=== PATIENT | male | born 1970 | race Hispanic/Latino ===

== ENCOUNTER 2020-02-24 17:43 | Inpatient (IN) | payer OTHER ==
[2020-02-24 18:24] LABS: BASOPHILS % (AUTO) 0.4 % (0.0-5.0); EOSINOPHILS % (AUTO) 0.3 % (0.0-8.0); HEMATOCRIT 37.8 % (42-54); LYMPHOCYTES % (AUTO) 10.4 % (21.0-51.0); MEAN CORPUSCULAR HEMOGLOBIN 27.7 pg (27.0-33.0); MEAN CORPUSCULAR HGB CONC 33.6 g/dL (32.0-36.0); MEAN CORPUSCULAR VOLUME 82.4 fL (79-99); MONOCYTES % (AUTO) 5.7 % (3.0-13.0); NEUTROPHILS % (AUTO) 82.5 % (40.0-77.0); PLATELET COUNT (AUTO) 225 K/uL (130-400); RED BLOOD CELL COUNT(AUTO) 4.59 MIL/uL (4.50-6.20); RED CELL DISTRIBUTION WIDTH 13.3 % (11.0-15.5); WHITE BLOOD COUNT (AUTO) 10.5 K/uL (4.8-10.8)
[2020-02-24 18:25] LABS: APPEARANCE,URINE Clear (CLEAR); BILIRUBIN,URINE Negative (NEGATIVE); COLOR,URINE Yellow (YELLOW); GLUCOSE, URINE (UA) TRACE mg/dL (NEGATIVE); KETONES,URINE 15 mg/dL (NEGATIVE); LEUKOCYTE ESTERASE ,URINE Negative (NEGATIVE); NITRATE,URINE Negative (NEGATIVE); OCCULT BLOOD,URINE Negative (NEGATIVE); PROTEIN,URINE Negative (NEGATIVE)
[2020-02-24 18:36] LABS: PARTIAL THROMBOPLASTIN TIME 23.1 SEC (26.3-35.5); PROTHROMBIN TIME 10.8 SEC (9.6-11.6)
[2020-02-24 18:48] LABS: ALBUMIN 3.8 g/dL (3.5-5.0); BILIRUBIN,TOTAL 0.5 mg/dL (0.2-1.0); CREATININE 1.1 mg/dL (0.5-1.5); TOTAL PROTEIN, SERUM 7.7 g/dL (6.0-8.3)
[2020-02-24 18:51] LABS: POTASSIUM 2.8 mmol/L (3.5-5.1)
[2020-02-24 18:58] LABS: BACTERIA,URINE Rare /HPF (None Seen); RBC,URINE 0-1 /HPF (0-1); SQUAMOUS EPITHELIAL CELL,UR Rare /HPF (0-2); WBC,URINE 0-1 /HPF (0-1)
[2020-02-24] MEDS ORDERED: POTASSIUM BICARB/CIT AC 25 MEQ TABLET.EFF ONE (19:06)
[2020-02-24] MEDS: FAMOTIDINE/PF 20 MG/2 ML VIAL IV SCH (21:00)
[2020-02-24] MEDS ORDERED: ONDANSETRON HCL 4 MG/2 ML VIAL IV PRN (21:00)
[2020-02-24] MEDS ORDERED: MORPHINE SULFATE 2 MG/ML 1ML SYG IV PRN (21:00)
[2020-02-24] MEDS ORDERED: SODIUM CHLORIDE 0.9% 1000ML 1,000 ML IV SCH (21:00)
[2020-02-24] MEDS ORDERED: ACETAMINOPHEN 325 MG TAB PO PRN (21:00)
[2020-02-24] MEDS ORDERED: FAMOTIDINE/PF 20 MG/2 ML VIAL IV ONE (21:49)
[2020-02-24] MEDS ORDERED: ACETAMINOPHEN 325 MG TAB ONE (22:07)
[2020-02-24] MEDS: LACTATED RINGERS 1000ML 1,000 ML IV SCH (23:00)
[2020-02-24 23:10] VITALS: BP 128/80
[2020-02-25 04:17] VITALS: BP 122/71
[2020-02-25 05:04] LABS: BASOPHILS % (AUTO) 0.5 % (0.0-5.0); EOSINOPHILS % (AUTO) 1.5 % (0.0-8.0); HEMATOCRIT 38.9 % (42-54); MEAN CORPUSCULAR HEMOGLOBIN 27.7 pg (27.0-33.0); MEAN CORPUSCULAR HGB CONC 33.4 g/dL (32.0-36.0); MEAN CORPUSCULAR VOLUME 82.8 fL (79-99); MONOCYTES % (AUTO) 8.7 % (3.0-13.0); PLATELET COUNT (AUTO) 221 K/uL (130-400); RED CELL DISTRIBUTION WIDTH 13.6 % (11.0-15.5); WHITE BLOOD COUNT (AUTO) 7.3 K/uL (4.8-10.8)
[2020-02-25 05:45] LABS: ALBUMIN 3.3 g/dL (3.5-5.0); BILIRUBIN,TOTAL 0.6 mg/dL (0.2-1.0); CREATININE 0.8 mg/dL (0.5-1.5); POTASSIUM 3.7 mmol/L (3.5-5.1); THYROID STIMULATING HORMONE 2.41 uIU/mL (0.36-3.74); TOTAL PROTEIN, SERUM 6.9 g/dL (6.0-8.3)
[2020-02-25] MEDS ORDERED: POTASSIUM CHLORIDE 10MEQ/100ML 100 ML IV PRN (06:15)
[2020-02-25] MEDS ORDERED: POTASSIUM CHLORIDE 10% ELIXIR 20 MEQ/15 ML UDCUP PO PRN (06:15)
[2020-02-25] MEDS ORDERED: LIDOCAINE HCL-MPF 1% 2ML VIAL IV PRN (06:15)
[2020-02-25] MEDS ORDERED: CEFTRIAXONE SODIUM 1 GM IVP SCH (06:45)
[2020-02-25 07:00] VITALS: BP 117/67
[2020-02-25] MEDS: FAMOTIDINE/PF 20 MG/2 ML VIAL IV SCH ×2 (08:18→22:36)
[2020-02-25] MEDS: CEFTRIAXONE SODIUM 1 GM IVP SCH ×2 (08:18→22:36)
[2020-02-25] MEDS: LACTATED RINGERS 1000ML 1,000 ML IV SCH ×2 (08:19→15:42)
[2020-02-25] MEDS: ENOXAPARIN SODIUM 30 MG/0.3 ML SQ SCH (08:20)
[2020-02-25 10:54] LABS: AMPHET/METH SCREEN,URINE NEGATIVE (NEGATIVE); BARBITURATE SCREEN, URINE NEGATIVE (NEGATIVE); BENZODIAZEPINES SCREEN,URINE NEGATIVE (NEGATIVE); CANNABINOID SCREEN,URINE NEGATIVE (NEGATIVE); COCAINE SCREEN,URINE NEGATIVE (NEGATIVE); OPIATE SCREEN,URINE NEGATIVE (NEGATIVE); PHENCYCLIDINE SCREEN,URINE NEGATIVE (NEGATIVE)
[2020-02-25 11:00] VITALS: BP 109/76
[2020-02-25] MEDS: DOXYCYCLINE HYCLATE 100 MG TABLET PO SCH ×2 (11:14→22:36)
[2020-02-25 11:51] LABS: CREATININE 0.9 mg/dL (0.5-1.5); POTASSIUM 4.3 mmol/L (3.5-5.1)
--- NOTE | 2020-02-25 12:40 | NUR ---
DR. Patricio CLAY IN ROOM, FOR CONSULT, SPEAKING WITH PT.
[2020-02-25 13:04] LABS: CHLORIDE,URINE RANDOM 99 mmol/L (110-250); POTASSIUM,URINE RANDOM 24 mmol/L (25-125); SODIUM,URINE RANDOM 88 mmol/l (40-220)
--- NOTE | 2020-02-25 14:35 | NUR ---
RESTING IN BED WITH HOB AT 15 DEGREES, RESP.'S EVEN AND UNLABORED. WATCHING TELEVISION. O2 SAT-97%, P-67, PER CONT. PULSE OXIMETER AT BEDSIDE. CALL LIGHT WITHIN REACH.
[2020-02-25 16:00] VITALS: BP 120/72
[2020-02-25 20:19] VITALS: BP 115/69
[2020-02-25] MEDS: THIAMINE HCL 100 MG/ML 2ML VIAL IVP SCH (21:00)
[2020-02-25] MEDS: ACETAMINOPHEN 325 MG TAB PO PRN (23:01)
[2020-02-25 23:23] VITALS: BP 107/67
[2020-02-26 03:59] VITALS: BP 107/53
[2020-02-26 04:54] LABS: HEMATOCRIT 40.1 % (42-54); MEAN CORPUSCULAR HGB CONC 32.4 g/dL (32.0-36.0); MEAN CORPUSCULAR VOLUME 86.2 fL (79-99); RED BLOOD CELL COUNT(AUTO) 4.65 MIL/uL (4.50-6.20); RED CELL DISTRIBUTION WIDTH 14.2 % (11.0-15.5); WHITE BLOOD COUNT (AUTO) 5.9 K/uL (4.8-10.8)
[2020-02-26 05:14] LABS: CREATININE 0.9 mg/dL (0.5-1.5); POTASSIUM 3.6 mmol/L (3.5-5.1); URIC ACID 4.4 mg/dL (2.6-7.2)
[2020-02-26] MEDS: LACTATED RINGERS 1000ML 1,000 ML IV SCH ×3 (05:21→15:18)
[2020-02-26] MEDS: POTASSIUM CHLORIDE 20 MEQ ERTAB PO PRN ×2 (06:42→16:38)
[2020-02-26 07:00] VITALS: BP 104/65
[2020-02-26] MEDS: ENOXAPARIN SODIUM 30 MG/0.3 ML SQ SCH (08:19)
[2020-02-26] MEDS: DOXYCYCLINE HYCLATE 100 MG TABLET PO SCH ×2 (08:19→19:27)
[2020-02-26] MEDS: FAMOTIDINE/PF 20 MG/2 ML VIAL IV SCH ×2 (08:19→19:26)
[2020-02-26] MEDS: CEFTRIAXONE SODIUM 1 GM IVP SCH ×2 (08:19→19:26)
[2020-02-26] MEDS: ACETAMINOPHEN 325 MG TAB PO PRN ×2 (09:40→22:21)
[2020-02-26 11:00] VITALS: BP 94/54
[2020-02-26 15:00] VITALS: BP 115/58
--- NOTE | 2020-02-26 16:50 | NUR ---
PATIENT COVID PCR NEGATIVE, REPORT GIVEN TO HUYEN HOLLAND, TRANSFERRED TO ROOM 305. PATIENT AAOX3, ROOM AIR, DENIES SOB/PAIN, BELONGINGS SENT WITH PATIENT
--- NOTE | 2020-02-26 17:13 | NUR ---
MET W/ PATIENT AT BEDSIDE FOR D/C PLANNING. STATES LIVES WITH SPOUSE CECILY, NUMBER ON FACE SHEET INCORRECT. UPDATED TO [phone] AND FAXED TO 2950. JOSE IS UNDOCUMENTED AND HAS NOT SEEN AN MD FOR A VERY LONG TIME. IS ACTIVE, INDPENDENT, NO DME. DCP HOME. PENDING TO GIVE HIM [facility] [employer] PKT W INFO ON [facility] Addendum: 02/27/20 at 0828 by BORIS COLUNGA RN CM Amended: Links added.
[2020-02-26] MEDS: THIAMINE HCL 100 MG/ML 2ML VIAL IVP SCH (19:26)
[2020-02-26 20:00] VITALS: BP 110/70
[2020-02-26] MEDS ORDERED: FLU VACC QS2020-21(6MOS UP)/PF 60 MCG/0.5 ML ML IM ONE (21:00)
[2020-02-26 23:24] VITALS: BP 111/70
[2020-02-27 03:54] VITALS: BP 97/54
[2020-02-27 05:44] LABS: BASOPHILS % (AUTO) 0.8 % (0.0-5.0); EOSINOPHILS % (AUTO) 7.7 % (0.0-8.0); HEMATOCRIT 39.6 % (42-54); LYMPHOCYTES % (AUTO) 42.1 % (21.0-51.0); MEAN CORPUSCULAR HEMOGLOBIN 27.9 pg (27.0-33.0); MEAN CORPUSCULAR HGB CONC 31.8 g/dL (32.0-36.0); MEAN CORPUSCULAR VOLUME 87.6 fL (79-99); MONOCYTES % (AUTO) 8.5 % (3.0-13.0); NEUTROPHILS % (AUTO) 40.7 % (40.0-77.0); PLATELET COUNT (AUTO) 185 K/uL (130-400); RED BLOOD CELL COUNT(AUTO) 4.52 MIL/uL (4.50-6.20); RED CELL DISTRIBUTION WIDTH 13.7 % (11.0-15.5); WHITE BLOOD COUNT (AUTO) 6.4 K/uL (4.8-10.8)
[2020-02-27 06:08] LABS: CREATININE 0.9 mg/dL (0.5-1.5); POTASSIUM 3.8 mmol/L (3.5-5.1)
[2020-02-27] MEDS: LACTATED RINGERS 1000ML 1,000 ML IV SCH ×3 (07:18→08:54)
[2020-02-27 08:00] VITALS: BP 115/73
[2020-02-27] MEDS: DOXYCYCLINE HYCLATE 100 MG TABLET PO SCH (08:41)
[2020-02-27] MEDS: FAMOTIDINE/PF 20 MG/2 ML VIAL IV SCH (08:41)
[2020-02-27] MEDS: CEFTRIAXONE SODIUM 1 GM IVP SCH (08:41)
[2020-02-27] MEDS: ENOXAPARIN SODIUM 30 MG/0.3 ML SQ SCH (08:42)
[2020-02-27] MEDS: ACETAMINOPHEN 325 MG TAB PO PRN (08:43)
[2020-02-27] MEDS ORDERED: CEFAZOLIN SODIUM 1 GM VIAL IVP PRN (09:45)
[2020-02-27 12:00] VITALS: BP 111/63
--- NOTE | 2020-02-27 14:20 | NUR ---
Discharge teaching completed w pt at bedside. Emphasis on dx, s/s to monitor for, when to seek emergency care vs dial 911. Pt coached on importance of alcohol avoidance/cessation. Pt has no established PCP, he understands he must select one from the list of providers included in discharge packet and call to schedule follow up appointment to be seen within 3-5 days. No new rx written. PIV removed from left forearm, tip intact, dressed with sterile 2x2 and band aid after hemostasis achieved. air sampling and monitoring removed. Pt wheeled to [facility] [employer] by [facility] staff for transport home via private car. Pt in stable condition at time of discharge.
--- NOTE | 2020-03-01 12:58 | NUR ---
TRANSITIONAL CARE - POST-DISCHARGE NOTE Spoke to patient at number received from spouse. As per patient, he is doing well. He states he has not follow up with with PCP as he doesn't have one, nor his own vehicle, but that he will try this week to follow up with someone. The patient denies CP, SOB, N/V/D, fevers/chills.
== END 2020-02-27 14:45 | disposition home or self-care (01) | DRG 558 ==
LOC: EDH 17:43 → EDHIP 17:44 → 2AH 23:00 → 3BH 02-26 16:56
PROVIDERS: ADMIT Internal Medicine; ATTEND Internal Medicine
DX: M62.82 Rhabdomyolysis (principal); E87.1 Hypo-osmolality and hyponatremia; E87.6 Hypokalemia; E86.1 Hypovolemia; F17.210 Nicotine dependence, cigarettes, uncomplicated; F41.9 Anxiety disorder, unspecified; Z20.828 Contact with and (suspected) exposure to other viral communicable diseases
CPT/HCPCS: 36415; 71045; 80048; 80051; 80053; 80305; 81001; 82550; 83036; 83605; 83735; 84145; 84443; 84484; 84550; 85025; 85027; 85378; 85610; 85730; 87040; 87426; 87804; 93005; G0378; J0696; J1650; J2405; J3411; J3490; J7120; U0003